=== PATIENT | female | born 1965 | race American Indian/Alaskan Native ===

== ENCOUNTER 2016-06-13 14:39 | Outpatient (CLI) | payer BC ==
--- NOTE | 2016-06-13 16:06 | Mammography Report ---
BONE DEXA:06/13/16 14:39:00 CLINICAL: Postmenopausal. No comparison. TECHNIQUE: Two site bone DEXA performed on an Hologic scanner. FINDINGS: The average BMD of the lumbar spine L1-L4 is 1.316g/cm squared with a T-score of +1.5 and a Z-score of +2.3. The average BMD of the left hip is 1.240g/cm squared with a T-score of +1.3 and a Z-score of +1.6. IMPRESSION: WHO classification: Normal with average fracture risk based on the spine and left hip measurements. RECOMMENDATION: Clinical correlation and routine screening. DEFINITIONS: BMD = Bone Mineral Density T-score = BMD related to mean peak bone mass of young adult (mean expressed in Standard Deviation) Z-score = Age matched BMD expressed in SD World Health Organization (WHO) Diagnostic Criteria Normal T-score > -1 SD Osteopenia T-score between -1 and -2.4 SD Osteoporosis T-score -2.5 SD or below NOTE: BMD is not the only risk factor for fracture. One should also consider factors such as the patient's age, risk of falling, previous osteoporotic fracture, family history of osteoporotic fractures, current smoker, and low body weight. Z-scores are not calculated if >80 years of age.
--- NOTE | 2016-06-13 16:09 | Mammography Report ---
BILATERAL DIGITAL SCREENING MAMMOGRAM : 06/13/16 14:39:00 CLINICAL: Routine screening. COMPARISON:06/08/15 and 06/07/14 FINDINGS: There are bilateral scattered areas of fibroglandular density.Benign summation density in the left breast on MLO view.No mass, architectural distortion or suspicious calcifications. IMPRESSION: No mammographic evidence of malignancy. BI-RADS CATEGORY: 2 - - Benign RECOMMENDATION: Routine mammographic screening in one year. COMMENT: Patient follow-up letters are generated by our [employer] application.
== END 2016-06-13 14:40 | disposition home or self-care (01) ==
LOC: SPVWC 14:39
PROVIDERS: ATTEND Family Medicine
DX: Z12.31 Encounter for screening mammogram for malignant neoplasm of breast (principal); Z13.820 Encounter for screening for osteoporosis; Z78.0 Asymptomatic menopausal state
CPT/HCPCS: 77080; G0202; 77067

== ENCOUNTER 2017-06-20 15:16 | Outpatient (CLI) | payer BC ==
--- NOTE | 2017-06-23 08:53 | Mammography Report ---
BILATERAL DIGITAL SCREENING MAMMOGRAM with CAD: 06/20/17 15:16:00 CLINICAL: Routine screening. COMPARISON: 06/13/16 FINDINGS: There are bilateral scattered areas of fibroglandular density.No mass, architectural distortion or suspicious calcifications. IMPRESSION: No mammographic evidence of malignancy. BI-RADS CATEGORY: 1 -- Negative RECOMMENDATION: Routine mammographic screening in one year. COMMENT: Patient follow-up letters are generated by our [employer] application.
== END 2017-06-20 15:17 | disposition home or self-care (01) ==
LOC: SPVWC 15:16
PROVIDERS: ATTEND Family Medicine
DX: Z12.31 Encounter for screening mammogram for malignant neoplasm of breast (principal)
CPT/HCPCS: 77067

== ENCOUNTER 2017-06-30 05:47 | Day surgery (SDC) | payer BC ==
[~2017-06-30 05:47] MED LIST: MARCAINE 0.5% INFILTRATI ONE; NACL 0.9% IR ONE
[2017-06-30] MEDS ORDERED: NACL BACTERIOSTATIC INFILTRATI ONE (06:44)
[2017-06-30] MEDS ORDERED: ANCEF/STERILE WATER 2 GM/20 ML IV NR (07:00)
[2017-06-30] MEDS ORDERED: DIPRIVAN 10 MG/ML IV ONE (07:33)
[2017-06-30] MEDS ORDERED: SUBLIMAZE ONE (07:34)
--- NOTE | 2017-06-30 07:36 | Anesthesia Day of Surgery ---
Anesthesia Day of Surgery - Day of Surgery Patient Examined: Yes Patient H&P Reviewed: Yes Patient is NPO: Yes
--- NOTE | 2017-06-30 07:36 | Anesthesia Consultation ---
Anesthesia Consult and Med Hx Date of service: 06/30/17 - Airway Anesthetic Teeth Evaluation: Good ROM Head & Neck: Adequate Mental/Hyoid Distance: Adequate Mallampati Class: Class II Intubation Access Assessment: Good - Pulmonary Exam CTA: Yes - Cardiac Exam Cardiac Exam: RRR - Pre-Operative Health Status ASA Pre-Surgery Classification: ASA2 Proposed Anesthetic Plan: General, MAC - Pulmonary Hx Smoking: No Hx Sleep Apnea: No - Cardiovascular System Hx Hypertension: Yes (2004) - Central Nervous System Hx Psychiatric Problems: No - Gastrointestinal Hx Gastroesophageal Reflux Disease: No - Endocrine Hx Hypothyroidism: Yes (2010; takes Synthroid) Hx Hyperthyroidism: (TYHROID NODULE/RADIATION ;) - Hematic Hx Sickle Cell Disease: Yes (TRAIT only) - Other Systems Hx Cancer: No Hx Obesity: Yes (BMI= 37.2) - Additional Comments Anesthesia Medical History Comments: K- 3.1. Informed consent obtained
[2017-06-30] MEDS ORDERED: XYLOCAINE 1% 20 mL ONE (07:56)
[2017-06-30] MEDS ORDERED: MARCAINE 0.5% 30 ML INFILTRATI ONE (07:56)
[2017-06-30] MEDS ORDERED: LACTATED RINGERS 1,000 ML IV SCH (08:00)
[2017-06-30] MEDS ORDERED: PEPCID IV NR (08:00)
[2017-06-30] MEDS ORDERED: VERSED IV NR (08:00)
[2017-06-30] MEDS ORDERED: NACL 0.9% IR ONE (08:00)
[2017-06-30] MEDS ORDERED: MARCAINE 0.5% INFILTRATI ONE (08:00)
[2017-06-30] MEDS ORDERED: XYLOCAINE 1% 20 mL INFILTRATI ONE (08:00)
[2017-06-30] MEDS ORDERED: VERSED IV ONE (08:14)
--- NOTE | 2017-06-30 09:05 | Operative Report ---
PREOPERATIVE DIAGNOSIS: Benign neoplasm of left cheek. POSTOPERATIVE DIAGNOSIS: Benign neoplasm of left cheek. PROCEDURE: 1. Excision, benign neoplasm of left cheek 1.5 cm. 2. Complex closure of left cheek neoplasm 2 cm. DESCRIPTION OF PROCEDURE: The patient was brought to the operating room, placed on the table in supine position. Following administration of IV sedation and local anesthesia, elliptical skin incision was made circumferentially around the cyst. This elliptical wedge of skin was excised along with circumferential excision of the cyst, sent to pathology as a specimen. Hemostasis controlled using electrocautery. Closure was performed in layers using interrupted and running subcuticular 4-0 Monocryl sutures. Mastisol, Steri-Strips, and sterile dressings applied. The patient tolerated the procedure well and returned to recovery room in stable condition. JOB# [id number] FTW/ALBERTO ORR
--- NOTE | 2017-06-30 10:28 | Post Anesthesia Evaluation ---
- Post Anesthesia Evaluation Patient Participated: Yes Airway Patent: Yes Stable Respiratory Function: Yes Nausea/Vomiting: No Temp > 96.8F: Yes Pain Manageable: Yes Adequeate Hydration: Yes Anesthesia Complications: No
--- NOTE | 2017-06-30 10:33 | Discharge Summary ---
Short Stay Discharge Plan Activity: no restrictions Weight Bearing Status: Full Weight Bearing Diet: regular Wound: open to air, other (keep site dry) Additional Instructions: DISCHARGE PT HOME TODAY. TO SEE ME IN OFFICE ON FRIDAY. Follow up with: CK SELLERS MD [Primary Care Provider] - 6 Weeks WORK,BEBETO Storey JR, MD [Staff Physician] - 7 Days Forms: Outpatient Surgery DC Inst.
[2017-06-30 10:36] VITALS: BP 105/72
--- NOTE | 2017-06-30 10:36 | Short Stay Summary ---
Short Stay Documentation Date of service: 06/30/17 - Allergies and Medications Current Medications: Allergies No Known Allergies Allergy (Verified 06/27/17 16:35) Home Medications Medication Instructions Recorded Confirmed Last Taken Type Levothyroxine [Synthroid] 100 mcg PO QAM 09/28/14 06/27/17 06/29/17 History Potassium Chloride [K-Dur] 1 tab PO DAILY 09/28/14 06/27/17 06/29/17 History Triamterene/Hydrochlorothiazid 1 tab PO DAILY 09/28/14 06/30/17 06/30/17 05:00 History [Triamterene-Hctz 37.5-25 mg] - Brief post op/procedure progress note Date of procedure: 06/30/17 Pre-op diagnosis: Benign Neoplasm of LT Cheek Procedure: Excision of Benign Neoplasm of LT Cheek and Complex [id number] Anesthesia: GETA Findings: EIC Surgeon: BEBETO EDMOND JR Estimated blood loss: 50-100ml Specimen disposition: to lab Condition: stable - Disposition Condition at discharge: Stable Disposition: - TO HOME OR SELFCARE Short Stay Discharge Plan Additional Instructions: DISCHARGE PT HOME TODAY. TO SEE ME IN OFFICE ON FRIDAY. Follow up with: BEBETO EDMOND JR, MD [Staff Physician] - 7 Days CK SELLERS MD [Primary Care Provider] - 6 Weeks Forms: Outpatient Surgery DC Inst.
--- NOTE | 2017-06-30 14:04 | Post Anesthesia Evaluation ---
- Post Anesthesia Evaluation Patient Participated: Yes Airway Patent: Yes Stable Respiratory Function: Yes Nausea/Vomiting: No Temp > 96.8F: Yes Pain Manageable: Yes Adequeate Hydration: Yes Anesthesia Complications: No Block Receding Appropriately: Not Applicable Patient on Ventilator: No
== END 2017-06-30 10:00 | disposition home or self-care (01) ==
LOC: OR 05:47
PROVIDERS: ATTEND Plastic Surgery
DX: L72.0 Epidermal cyst (principal); D36.7 Benign neoplasm of other specified sites; I10 Essential (primary) hypertension; D57.3 Sickle-cell trait; E89.0 Postprocedural hypothyroidism; E66.9 Obesity, unspecified; Z68.37 Body mass index [BMI] 37.0-37.9, adult; Z98.890 Other specified postprocedural states; Z79.899 Other long term (current) drug therapy; Z92.3 Personal history of irradiation
CPT/HCPCS: 11442; 12051; 36415; 81025; 84132; 88304; J0690; J2250; J2704; J3010; J7120; 88305

== ENCOUNTER 2018-07-06 15:13 | Outpatient (CLI) | payer BC ==
--- NOTE | 2018-07-06 16:22 | Mammography Report ---
BILATERAL MAMMOGRAM: FINDINGS: There are scattered fibroglandular densities (approximately 25%-50% glandular). No mass, distortion, suspicious calcification, or skin change is seen. There have been no interval change is identified compared to exams dating back to 2015. CAD was utilized. IMPRESSION: Negative mammogram. There is no mammographic evidence of malignancy. RECOMMENDATION: Follow-up per ACS guidelines. BI-RADS CATEGORY: 1 = Negative ACR BI-RADS MAMMOGRAPHIC CODES: 0 = Needs additional imaging evaluation; 1 = Negative; 2 = Benign; 3 = Probably benign; 4 = Suspicious; 5 = Malignant; 6 = Known biopsy-proven malignancy COMMENT: 1. Dense breast tissue, i.e., adenosis, fibrocystic changes, etc., may obscure an underlying neoplasm. 2. Approximately 10% of cancers are not detected with mammography. 3. A negative mammography report should not delay biopsy if a clinically suspicious mass is present. COMMENT: Patient follow-up letters are generated in [employer].
== END 2018-07-06 15:14 | disposition home or self-care (01) ==
LOC: SPVWC 15:13
DX: Z12.31 Encounter for screening mammogram for malignant neoplasm of breast (principal); I10 Essential (primary) hypertension; E66.9 Obesity, unspecified; E03.9 Hypothyroidism, unspecified
CPT/HCPCS: 77067

== ENCOUNTER 2019-05-04 07:27 | Outpatient (CLI) | payer BC ==
[2019-05-04 08:35] LABS: Alanine Aminotransferase 21 units/L (7-56); Albumin 4.2 g/dL (3.9-5); BUN/Creatinine Ratio 13; Blood Urea Nitrogen 12 mg/dL (7-17); Calcium 9.1 mg/dL (8.4-10.2); Hemolysis Index 9
[2019-05-04 08:43] LABS: Free T4 (Free Thyroxine) 1.04 ng/dL (0.76-1.46)
== END 2019-05-04 07:28 | disposition home or self-care (01) ==
LOC: LAB 07:27
PROVIDERS: ATTEND Family Medicine
DX: E89.0 Postprocedural hypothyroidism (principal); I10 Essential (primary) hypertension; E78.2 Mixed hyperlipidemia
CPT/HCPCS: 36415; 80053; 84439; 84443

== ENCOUNTER 2019-07-26 09:11 | Outpatient (CLI) | payer BC ==
--- NOTE | 2019-07-26 15:26 | Mammography Report ---
DIGITAL SCREENING MAMMOGRAM WITH CAD, 07/26/2019 INDICATION: Routine screening mammography. TECHNIQUE: Digital bilateral 2D mammography was obtained in the craniocaudal and mediolateral obliq ue projections. This examination was interpreted with the benefit of Computer-Aided Detection analysi s. COMPARISON: 07/06/2018 FINDINGS: Breast Density: There are scattered areas of fibroglandular density. There is no evidence of dominant mass, suspicious calcifications or architectural distortion in eithe r breast. IMPRESSION: No mammographic evidence of malignancy. Follow up recommendation: Routine yearly BI-RADS Category 1: Negative. A "normal" or negative report should not discourage follow up or biopsy of a clinically significant f inding. A written summary of these findings will be mailed to the patient. The patient will be entered into a mammography reporting system which will generate a reminder letter for the patient's next appointmen t at the appropriate interval. The [employer] recommends yearly mammograms starting at age 40 and continuing as l jony as a woman is in good health. Breast MRI is recommended for women with an approximate 20-25% or greater lifetime risk of breast cancer, including women with a strong family history of breast or ova jef cancer or who have been treated for Hodgkin's disease. Signer Name: Reginald Winslow MD Signed: 07/26/2019 3:22 PM Workstation Name: [id number]
== END 2019-07-26 09:12 | disposition home or self-care (01) ==
LOC: SPVWC 09:11
PROVIDERS: ATTEND Internal Medicine
DX: Z12.31 Encounter for screening mammogram for malignant neoplasm of breast (principal); N64.89 Other specified disorders of breast
CPT/HCPCS: 77067

== ENCOUNTER 2019-07-26 09:19 | Outpatient (CLI) | payer BC ==
--- NOTE | 2019-07-26 10:34 | Ultrasound Report ---
THYROID ULTRASOUND HISTORY: HYPOTHYROIDISM COMPARISON: None TECHNIQUE: Routine sonographic images were obtained of the thyroid. FINDINGS: Right thyroid lobe: No significant abnormality. The right thyroid lobe measures 0.0 x 1.6 x 1.0 cm. Isthmus: An oval solid hypoechoic nodule of the isthmus measures 1.5 x 0.6 x 0.7 cm. It demonstrate s moderate blood flow by color Doppler. The isthmus measures 6.5 mm AP thickness. Left thyroid lobe: No significant abnormality. The left thyroid lobe measures 4.0 x 0.7 x 1.4 cm. Additional Findings: None. IMPRESSION: 1. A relatively small thyroid with a single 1.5 cm nodule of the isthmus. 2. Consider ultrasound-guided FNA of this single nodule. Signer Name: Reginald Winslow MD Signed: 07/26/2019 10:30 AM Workstation Name: [id number]
== END 2019-07-26 09:20 | disposition home or self-care (01) ==
LOC: SPVIMAG 09:19
PROVIDERS: ATTEND Internal Medicine
DX: E03.9 Hypothyroidism, unspecified (principal); E04.1 Nontoxic single thyroid nodule; Z92.3 Personal history of irradiation
CPT/HCPCS: 76536

== ENCOUNTER 2019-08-02 06:01 | Outpatient (CLI) | payer BC ==
[2019-08-02 06:40] LABS: Alanine Aminotransferase 19 units/L (7-56); BUN/Creatinine Ratio 10; Blood Urea Nitrogen 9 mg/dL (7-17); Calcium 9.6 mg/dL (8.4-10.2); Hemolysis Index 7
[2019-08-02 06:52] LABS: Free T4 (Free Thyroxine) 1.2 ng/dL (0.76-1.46)
== END 2019-08-02 06:02 | disposition home or self-care (01) ==
LOC: LAB 06:01
PROVIDERS: ATTEND Internal Medicine
DX: E04.1 Nontoxic single thyroid nodule (principal); I10 Essential (primary) hypertension; R73.03 Prediabetes; Z92.3 Personal history of irradiation
CPT/HCPCS: 36415; 80053; 83036; 84439; 84443

== ENCOUNTER 2020-07-07 22:05 | Emergency (ER) | payer BC ==
[2020-07-07] MEDS ORDERED: ASPIRIN 325 MG TAB PO ONE (22:42)
--- NOTE | 2020-07-07 23:10 | XRay Report ---
CHEST 1 VIEW 11:07 PM INDICATION / CLINICAL INFORMATION: Right chest pain since yesterday. COMPARISON: None available. FINDINGS: SUPPORT DEVICES: None. HEART / MEDIASTINUM: The heart size and pulmonary vasculature are normal. There is mild aortic tortuo sity without aneurysm. LUNGS / PLEURA: There is minimal linear opacity in both lung bases, greater on the left. The lungs ar e otherwise clear. No pleural abnormality. No pneumothorax. ADDITIONAL FINDINGS: No significant additional findings. IMPRESSION: Minimal bibasilar subsegmental atelectasis, greater on the left. Signer Name: Nain Salinas MD Signed: 07/07/2020 11:06 PM Workstation Name: [id number]
[2020-07-07 23:34] LABS: Basophils % (Auto) 0.7 % (0.0-1.8); Eosinophils # (Auto) 0.1 K/mm3 (0.0-0.4); Eosinophils % (Auto) 2.5 % (0.0-4.3); Hemoglobin 13.3 gm/dl (10.1-14.3); Lymphocytes # (Auto) 1.9 K/mm3 (1.2-5.4); Lymphocytes % (Auto) 39.9 % (13.4-35.0); Mean Corpuscular HGB Conc 34 % (30-34); Mean Corpuscular Volume 89 fl (79-97); Monocytes # (Auto) 0.4 K/mm3 (0.0-0.8); Monocytes % (Auto) 7.2 % (0.0-7.3); Platelet Count 209 K/mm3 (140-440); Red Blood Count 4.39 M/mm3 (3.65-5.03); Red Cell Distribution Width 14.7 % (13.2-15.2)
--- NOTE | 2020-07-08 00:20 | Emergency Department Report ---
ED Chest Pain HPI - General Chief Complaint: Chest Pain Stated Complaint: CHEST PAIN PUI?: No Time Seen by Provider: 07/08/20 00:01 Source: patient Mode of arrival: Ambulatory Limitations: No Limitations - History of Present Illness Initial Comments: Patient is a 55-year-old female that presents emergency room with complaints of right-sided chest pain. Patient dates her chest pain started yesterday. Patient states that her blood pressure been high since yesterday. Patient states she missed a dose of blood pressure medications. Patient states she is taking triamterene thiazide along with potassium and her thyroid medication. Patient denies nausea and vomiting. Patient denies shortness of breath. Patient denies chills. Patient states that her chest pain is a 6 out of 10. Patient states her chest pain is a dull pain. Patient states there is no modifying factors. Patient denies recent travel. Patient denies recent international travel. Patient denies exposure to the novel coronavirus. Patient denies sick contacts. Patient denies fever and chills. Patient denies cough. Patient denies diarrhea. Patient denies coming in contact with anybody with symptoms of the novel coronavirus. MD Complaint: chest pain -: Sudden Onset: during rest Pain Location: right chest Pain Radiation: none Severity: mild, moderate Severity scale (0 -10): 6 Quality: heaviness Improves With: nothing Worsens With: nothing re: denies: nausea, vomting, diaphoresis, dyspnea, sense of impending doom Other Symptoms: denies: cough, fever, syncope, rash, acid taste in mouth, leg swelling, palpitations, burping Treatments Prior to Arrival: none Aspirin use within the Past 7 Days: (0) No - Related Data Home Medications Medication Instructions Recorded Confirmed Last Taken Levothyroxine [Synthroid] 100 mcg PO QAM 09/28/14 06/27/17 06/29/17 Potassium Chloride [K-Dur] 1 tab PO DAILY 09/28/14 06/27/17 06/29/17 Triamterene/Hydrochlorothiazid 1 tab PO DAILY 09/28/14 06/30/17 06/30/17 05:00 [Triamterene-Hctz 37.5-25 mg] Allergies Allergy/AdvReac Type Severity Reaction Status Date / Time No Known Allergies Allergy Verified 06/27/17 16:35 Heart Score - HEART Score History: Slightly suspicious EKG: Normal Age: 45-65 Risk factors: No known risk factors Troponin: < normal limit HEART Score: 1 ED Review of Systems ROS: Stated complaint: CHEST PAIN Other details as noted in HPI Constitutional: denies: chills, fever Eyes: denies: eye pain, eye discharge, vision change ENT: denies: ear pain, throat pain Respiratory: denies: cough, shortness of breath, wheezing Cardiovascular: as per HPI, chest pain. denies: palpitations Endocrine: no symptoms reported Gastrointestinal: denies: abdominal pain, nausea, diarrhea Genitourinary: denies: urgency, dysuria, discharge Musculoskeletal: denies: back pain, joint swelling, arthralgia Skin: denies: rash, lesions Neurological: denies: headache, weakness, paresthesias Psychiatric: denies: anxiety, depression Hematological/Lymphatic: denies: easy bleeding, easy bruising ED Past Medical Hx - Past Medical History Previous Medical History?: Yes Hx Hypertension: Yes (2005) Hx Sickle Cell Disease: Yes (TRAIT only) Hx Asthma: Yes Hx HIV: No Additional medical history: Ovarian Cyst - Surgical History Past Surgical History?: Yes Additional Surgical History: Bilateral Carpal Tunnel Syndrome. Laser right achilles - Family History Family history: no significant - Social History Smoking Status: Never Smoker Substance Use Type: None - Medications Home Medications: Home Medications Medication Instructions Recorded Confirmed Last Taken Type Levothyroxine [Synthroid] 100 mcg PO QAM 09/28/14 06/27/17 06/29/17 History Potassium Chloride [K-Dur] 1 tab PO DAILY 09/28/14 06/27/17 06/29/17 History Triamterene/Hydrochlorothiazid 1 tab PO DAILY 09/28/14 06/30/17 06/30/17 05:00 History [Triamterene-Hctz 37.5-25 mg] ED Physical Exam - General Limitations: No Limitations General appearance: alert, in no apparent distress - Head Head exam: Present: atraumatic, normocephalic - Eye Eye exam: Present: normal appearance - ENT ENT exam: Present: mucous membranes moist - Neck Neck exam: Present: normal inspection - Respiratory Respiratory exam: Present: normal lung sounds bilaterally. Absent: respiratory distress, chest wall tenderness - Cardiovascular Cardiovascular Exam: Present: regular rate, normal rhythm. Absent: systolic murmur, diastolic murmur, rubs, gallop - GI/Abdominal GI/Abdominal exam: Present: soft, normal bowel sounds - Extremities Exam Extremities exam: Present: normal inspection - Back Exam Back exam: Present: normal inspection - Neurological Exam Neurological exam: Present: alert, oriented X3 - Psychiatric Psychiatric exam: Present: normal affect, normal mood - Skin Skin exam: Present: warm, dry, intact, normal color. 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 Patient will be given clonidine. 07/08/20 00:12 Reevaluation #2: Patient blood pressure is much better. 07/08/20 02:13 Reevaluation #3: Patient's D-dimer came back high. Patient will have a CTA of her chest. 07/08/20 03:13 Reevaluation #4: Patient states her chest pain is better. Patient's blood pressure is better. I discussed all results and clinical findings with patient. I discussed plan of care with patient. Patient agrees with plan of care. Patient is stable for discharge. Patient will be discharged home. Patient given discharge instructions. Patient voiced understanding of discharge instructions. 07/08/20 04:14 JUANITA score - Juanita Score Age > 65: (0) No Aspirin use within the Past 7 Days: (0) No 3 or more CAD Risk Factors: (0) No 2 or more Angina events in past 24 hrs: (0) No Known CAD with more than 50% Stenosis: (0) No Elevated Cardiac Markers: (0) No ST Deviation Greater than 0.5mm: (0) No JUANITA Score: 0 ED Medical Decision Making - Lab Data Result diagrams: 07/07/20 22:52 07/07/20 22:52 - EKG Data -: EKG Interpreted by [place] EKG shows normal: sinus rhythm, axis, intervals, QRS complexes, ST-T waves Rate: normal - Radiology Data Radiology results: report reviewed, image reviewed interpreted by me: Chest x-ray: No pneumonia, no pneumothorax, no foreign body, no osseous findings, no acute findings CHEST 1 VIEW 11:07 PM INDICATION / CLINICAL INFORMATION: Right chest pain since yesterday. COMPARISON: None available. FINDINGS: SUPPORT DEVICES: None. HEART / MEDIASTINUM: The heart size and pulmonary vasculature are normal. There is mild aortic tortuosity without aneurysm. LUNGS / PLEURA: There is minimal linear opacity in both lung bases, greater on the left. The lungs are otherwise clear. No pleural abnormality. No pneumothorax. ADDITIONAL FINDINGS: No significant additional findings. IMPRESSION: Minimal bibasilar subsegmental atelectasis, greater on the left. CT ANGIOGRAPHY OF THE CHEST WITH INTRAVENOUS CONTRAST AND MULTIPLANAR MIP RECONSTRUCTIONS INDICATION / CLINICAL INFORMATION: Chest pain and elevated d-dimer. TECHNIQUE: Axial CT images were obtained after injection of 100 cc Omnipaque 350 IV contrast using CTA protocol. 3 plane MIP / 3D reconstructions were produced. All CT scans at this location are performed using CT dose reduction for ALARA by means of automated exposure control. COMPARISON: None available. FINDINGS: There is good opacification of the pulmonary arterial system bilaterally without intraluminal filling defect to suggest acute PTE. The thoracic aorta is normal in caliber without dissection. No coronary artery calcification is seen. The tracheobronchial tree is normal. There is mild bibasilar dependent atelectasis. The lungs are otherwise clear. There is no evidence of effusion or adenopathy. There is cortical scarring involving both kidneys. The visualized upper abdomen is otherwise unremarkable. Mild spondylosis is present. IMPRESSION: No evidence of acute PTE. - Medical Decision Making Patient is a 46-year-old female that presents emergency room with complaints of right-sided chest pain. Patient had a chest x-ray which was negative for acute findings. Patient had labs done which were negative for acute findings. Patient's troponin was negative. Patient's found to have an elevated troponin. Patient had a CTA which was negative for PE and findings. Patient's EKG is negative for acute findings. Patient had no ST changes on EKG. Patient found to have elevated blood pressure. Patient missed her blood pressure dose for 1 day. Patient was given clonidine and her blood pressure responded well. Patient's chest pain resolved. Patient's stable for discharge. Patient chest pain-free work-up and outpatient. Patient's information was faxed over to our local cardiology group for risk stratification. - Differential Diagnosis Elevated blood pressure, chest pain, musculoskeletal pain, Critical care attestation.: If time is entered above; I have spent that time in minutes in the direct care of this critically ill patient, excluding procedure time. ED Disposition Clinical Impression: Elevated blood pressure reading, Right-sided chest pain, Elevated d-dimer Hypertension Qualifiers: Hypertension type: essential hypertension Qualified Code(s): I10 - Essential (primary) hypertension Disposition: TO HOME OR SELFCARE Is pt being admited?: No Does the pt Need Aspirin: No Condition: Stable Instructions: Chest Pain (ED), Hypertension (ED), Hypertension During , [id number], Preventing Hypertension, Hypertension, Adult, [id number], Nonspecific Chest Pain, Adult, [id number], Nonspecific Chest Pain, Adult, Chest Wall Pain Additional Instructions: Patient to follow-up with primary care in 2 to 3 days. Patient to follow-up with cardiology in 2 to 3 days. Patient to rest. Patient to increase water. Patient to avoid strenuous exercise or heavy lifting until cleared by cardiology. Patient to take Tylenol as needed for pain. Patient continue all blood pressure medications. Patient to monitor blood pressure at home. Patient to keep a blood pressure log. Patient to take blood pressure log to follow-up appointments. Patient to eat a heart healthy and low-sodium diet.. Patient to return to the ER if condition worsens, changes or new symptoms arise. Referrals: VI SETHI MD [Primary Care Provider] - 2-3 Days RICKEY HUITRON MD [Staff Physician] - 2-3 Days Time of Disposition: 04:15
[2020-07-08] MEDS ORDERED: cloNIDine 0.2 MG TAB PO ONE (00:35)
[2020-07-08 00:40] LABS: Alanine Aminotransferase 17 units/L (7-56); Albumin 4.1 g/dL (3.9-5); BUN/Creatinine Ratio 9; Blood Urea Nitrogen 8 mg/dL (7-17); Calcium 8.8 mg/dL (8.4-10.2); Hemolysis Index 4
--- NOTE | 2020-07-08 04:00 | Cat Scan Report ---
CT ANGIOGRAPHY OF THE CHEST WITH INTRAVENOUS CONTRAST AND MULTIPLANAR MIP RECONSTRUCTIONS INDICATION / CLINICAL INFORMATION: Chest pain and elevated d-dimer. TECHNIQUE: Axial CT images were obtained after injection of 100 cc Omnipaque 350 IV contrast using CTA protocol. 3 plane MIP / 3D reconstructions were produced. All CT scans at this location are performed using CT dose reduction for ALARA by means of automated exposure control. COMPARISON: None available. FINDINGS: There is good opacification of the pulmonary arterial system bilaterally without intraluminal filling defect to suggest acute PTE. The thoracic aorta is normal in caliber without dissection. No coronary artery calcification is seen. The tracheobronchial tree is normal. There is mild bibasilar dependent atelectasis. The lungs are oth erwise clear. There is no evidence of effusion or adenopathy. There is cortical scarring involving both kidneys. The visualized upper abdomen is otherwise unremark able. Mild spondylosis is present. IMPRESSION: No evidence of acute PTE. Signer Name: Nain Salinas MD Signed: 07/08/2020 3:55 AM Workstation Name: [id number]
[2020-07-08 04:30] VITALS: BP 137/80
== END 2020-07-08 04:53 | disposition home or self-care (01) ==
LOC: ED 22:05
DX: R03.0 Elevated blood-pressure reading, without diagnosis of hypertension (principal); R07.89 Other chest pain; R97.1 Elevated cancer antigen 125 [CA 125]; I10 Essential (primary) hypertension; J45.909 Unspecified asthma, uncomplicated; Z79.899 Other long term (current) drug therapy
CPT/HCPCS: 36415; 71045; 71275; 80053; 83880; 84484; 85025; 85379; Q9967

== ENCOUNTER 2020-07-27 15:00 | Outpatient (CLI) | payer BC ==
--- NOTE | 2020-07-27 16:10 | Mammography Report ---
DIGITAL SCREENING MAMMOGRAM WITH CAD, 07/27/2020 CLINICAL INFORMATION / INDICATION: Routine screening mammography. TECHNIQUE: Digital bilateral 2D mammography was obtained in the craniocaudal and mediolateral obliqu e projections. This examination was interpreted with the benefit of Computer-Aided Detection analysis . COMPARISON: 07/26/2009, 07/06/2018 FINDINGS: Breast Density: There are scattered areas of fibroglandular density. No dominant mass, suspicious calcifications, or architectural distortion in either breast. IMPRESSION: No mammographic evidence of malignancy. Follow up recommendation: Routine yearly BI-RADS Category 1: Negative. A "normal" or negative report should not discourage follow up or biopsy of a clinically significant f inding. A written summary of these findings will be mailed to the patient. The patient will be entered into a mammography reporting system which will generate a reminder letter for the patient's next appointmen t at the appropriate interval. The [employer] recommends yearly mammograms starting at age 40 and continuing as l jony as a woman is in good health. Breast MRI is recommended for women with an approximate 20-25% or greater lifetime risk of breast cancer, including women with a strong family history of breast or ova jef cancer or who have been treated for Hodgkin's disease. Signer Name: Shahbaz Jacome MD Signed: 07/27/2020 4:06 PM Workstation Name: [email or web address]
== END 2020-07-27 15:01 | disposition home or self-care (01) ==
LOC: SPVWC 15:00
PROVIDERS: ATTEND Internal Medicine
DX: Z12.31 Encounter for screening mammogram for malignant neoplasm of breast (principal)
CPT/HCPCS: 77067

== ENCOUNTER 2021-08-06 08:18 | Outpatient (CLI) | payer BC, OTHER ==
--- NOTE | 2021-08-06 17:51 | Mammography Report ---
DIGITAL SCREENING MAMMOGRAM WITH CAD, 08/06/2021 CLINICAL INFORMATION / INDICATION: Routine screening mammography. TECHNIQUE: Digital bilateral 2D mammography was obtained in the craniocaudal and mediolateral obliqu e projections. This examination was interpreted with the benefit of Computer-Aided Detection analysis . COMPARISON: 07/27/2020, 07/26/2019, 07/06/2018 FINDINGS: Breast Density: There are scattered areas of fibroglandular density. No dominant mass, suspicious calcifications, or architectural distortion in either breast. IMPRESSION: No mammographic evidence of malignancy. Follow up recommendation: Routine yearly BI-RADS Category 1: NEGATIVE A "normal" or negative report should not discourage follow up or biopsy of a clinically significant f inding. A written summary of these findings will be mailed to the patient. The patient will be entered into a mammography reporting system which will generate a reminder letter for the patient's next appointmen t at the appropriate interval. The [employer] recommends yearly mammograms starting at age 40 and continuing as l jony as a woman is in good health. Breast MRI is recommended for women with an approximate 20-25% or greater lifetime risk of breast cancer, including women with a strong family history of breast or ova jef cancer or who have been treated for Hodgkin's disease. Signer Name: Aura Garay MD Signed: 08/06/2021 5:47 PM Workstation Name: [email or web address]
== END 2021-08-06 08:19 | disposition home or self-care (01) ==
LOC: SPVWC 08:18
PROVIDERS: ATTEND Internal Medicine
DX: Z12.31 Encounter for screening mammogram for malignant neoplasm of breast (principal)
CPT/HCPCS: 77067